=== PATIENT | male | born 1945 | race Caucasian/White ===

== ENCOUNTER 2024-12-15 16:05 | Emergency (ER) | payer MEDICARE | END 2024-12-15 16:45 | disposition home or self-care (01) | LOC: NAV ERS 16:05 | DX: H00.11 Chalazion right upper eyelid (principal); I10 Essential (primary) hypertension | CPT/HCPCS: 99282 ==

== ENCOUNTER 2025-08-30 12:18 | Outpatient (CLI) | payer OTHER | END 2025-08-30 12:19 | disposition home or self-care (01) | LOC: NAV RAD 12:18 | PROVIDERS: ATTEND Student in an Organized Health Care Education/Training Program | DX: R05.3 Chronic cough (principal) | CPT/HCPCS: 71046 ==